=== PATIENT | female | born 1975 | race Caucasian/White ===

== ENCOUNTER 2017-11-21 12:39 | Emergency (ER) | payer BC ==
[2017-11-21] MEDS ORDERED: Proparacaine 0.5% Ophth Soln 15 ML Bottle EYEBOTH STA (13:48)
[2017-11-21] MEDS ORDERED: Bacitracin Oint 1 GM U/D Packet TOP ONE (14:16)
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
[2017-11-21] MEDS ORDERED: Diphtheria,Pertussis(Acell),Tetanus Vaccine 0.5 ML Syringe IM ONE (14:27)
== END 2017-11-21 14:29 | disposition home or self-care (01) ==
LOC: MW.ED 12:39
DX: S01.81XA Laceration without foreign body of other part of head, initial encounter (principal); F17.210 Nicotine dependence, cigarettes, uncomplicated; Z88.5 Allergy status to narcotic agent; W22.8XXA Striking against or struck by other objects, initial encounter
CPT/HCPCS: 99283